=== PATIENT | female | born 1945 | race Caucasian/White ===

== ENCOUNTER → 2017-01-25 | Outpatient (CLI) | payer OTHER | LOC: CIMAGING 08:04 | PROVIDERS: ATTEND Internal Medicine Hematology & Oncology | DX: Z12.31 Encounter for screening mammogram for malignant neoplasm of breast (principal); Z85.3 Personal history of malignant neoplasm of breast; Z90.12 Acquired absence of left breast and nipple | CPT/HCPCS: G0202-52 ==

== ENCOUNTER → 2018-03-17 | Outpatient (CLI) | payer OTHER | LOC: FIMAGING 08:16 | PROVIDERS: ATTEND Internal Medicine Hematology & Oncology | DX: Z13.820 Encounter for screening for osteoporosis (principal); M85.89 Other specified disorders of bone density and structure, multiple sites ==